=== PATIENT | male | born 1975 | race African-American/Black ===

== ENCOUNTER 2016-05-07 19:30 | Inpatient (IN) | payer OTHER ==
[~2016-05-07] VITALS: Ht 170.2 cm; Wt 102.9 kg
[2016-05-07] MEDS ORDERED: LOSA100T36 PO (19:47)
[2016-05-07] MEDS ORDERED: AMLO10TA2 PO (19:47)
[2016-05-07] MEDS ORDERED: LOPR1TAB7 PO (19:47)
[2016-05-07] MEDS ORDERED: NS 1,000 ML IV SCH (20:24)
[2016-05-07] MEDS ORDERED: ONDANSETRON 4MG/2ML VIAL (J2405) IV ONE (20:30)
[2016-05-07] MEDS ORDERED: MORPHINE 2 MG/ML 1ML SYRINGE IV PRN (20:30)
[2016-05-07] MEDS ORDERED: PANTOPRAZOLE 40MG INJ (PROTONIX) (C9113) IV ONE (20:30)
[2016-05-07 21:08] LABS: BASO # 0.1 K/mm3 (0.0-0.2); BASO % 0.3 % (0.0-1.0); EOS # 0.4 K/mm3 (0.0-0.50); EOS % 2.2 % (0.0-3.0); LARGE UNSTAINED CELL # 0.2 K/mm3 (0.0-0.4); LARGE UNSTAINED CELL % 1.2 % (0.0-4.0); LYMPH # 3.8 K/mm3 (1.5-4.5); LYMPH % 17.8 % (24.0-44.0); MEAN CORPUSCULAR HEMOGLOBIN 31.8 pg (27.0-33.0); MEAN CORPUSCULAR HGB CONC 32.7 g/dl (32.0-36.5); MEAN CORPUSCULAR VOLUME 97.4 fl (80.0-96.0); MONO # 0.9 K/mm3 (0.0-0.8); MONO % 4.4 % (0.0-5.0); NEUTROPHILS # 14.7 K/mm3 (1.8-7.7); PLATELET COUNT, AUTOMATED 222 k/mm3 (150-450); RED CELL DISTRIBUTION WIDTH 12.3 % (11.5-14.5); WHITE BLOOD COUNT 19.8 K/mm3 (4.0-10.0)
[2016-05-07 21:12] LABS: INR 1.16
[2016-05-07 21:41] LABS: ALBUMIN 2.9 GM/DL (3.2-5.2); ALKALINE PHOSPHATASE 61 U/L (45-117); ALT/SGPT 48 U/L (12-78); AMYLASE 84 U/L (25-115); ANION GAP 8 MEQ/L (8-16); AST/SGOT 32 U/L (15-37); BILIRUBIN,DIRECT 0.1 MG/DL (0.0-0.2); BILIRUBIN,TOTAL 0.3 MG/DL (0.2-1.0); BLOOD UREA NITROGEN 47 MG/DL (7-18); CALCIUM LEVEL 7.8 MG/DL (8.5-10.1); CARBON DIOXIDE LEVEL 24 MEQ/L (21-32); CHLORIDE LEVEL 113 MEQ/L (98-107); CREATININE FOR GFR 1.59 MG/DL (0.70-1.30); GLOMERULAR FILTRATION RATE > 60.0 (>60); GLUCOSE, FASTING 145 MG/DL (70-105); POTASSIUM SERUM 4.1 MEQ/L (3.5-5.1); SODIUM LEVEL 145 MEQ/L (136-145); TOTAL PROTEIN 5.8 GM/DL (6.4-8.2)
--- NOTE | 2016-05-07 22:30 | REPUSA ---
CT of the abdomen and pelvis without contrast Clinical statement: G.I. bleeding. Technique: Multiple axial CT images were obtained from the base of the lungs to the floor of the pelv is utilizing 5 mm axial slices without administration of contrast. Coronal and sagittal reconstructio ns were also obtained. No comparison is available. Findings: Chest: The visualized lung bases are clear. Abdomen: The kidneys are normal in size bilaterally. There is no evidence of hydronephrosis or nephro lithiasis. The liver, spleen, pancreas, gallbladder and adrenal glands are unremarkable. The aorta de monstrates normal caliber and contour. There is no abdominal lymphadenopathy or ascites. Pelvis: The bowel is unremarkable, with no obstructive or inflammatory changes. The appendix is andriy l. The urinary bladder is within normal limits. There is no pelvic lymphadenopathy or ascites. The ot her pelvic structures appear unremarkable. Bones: There are no suspicious osseous abnormalities seen. Minimal degenerative changes are seen at t he L4/L5 disc level, with a small disc osteophyte complex. Impression: Unremarkable CT examination of the abdomen and pelvis.
[2016-05-07] MEDS ORDERED: ONDANSETRON 4MG/2ML VIAL (J2405) IV PRN (23:30)
[2016-05-07] MEDS ORDERED: PANTOPRAZOLE 40MG INJ (PROTONIX) (C9113) IV SCH (23:30)
[2016-05-08] VITALS (10 sets, daily range): BP systolic 110–180; BP diastolic 60–112
[2016-05-08 00:11] LABS: BASO % 0.2 % (0.0-1.0); EOS # 0.3 K/mm3 (0.0-0.50); EOS % 1.7 % (0.0-3.0); LARGE UNSTAINED CELL # 0.1 K/mm3 (0.0-0.4); LARGE UNSTAINED CELL % 0.7 % (0.0-4.0); LYMPH # 1.8 K/mm3 (1.5-4.5); LYMPH % 11.1 % (24.0-44.0); MEAN CORPUSCULAR HEMOGLOBIN 31.3 pg (27.0-33.0); MEAN CORPUSCULAR HGB CONC 33.9 g/dl (32.0-36.5); MEAN CORPUSCULAR VOLUME 92.5 fl (80.0-96.0); MONO # 0.4 K/mm3 (0.0-0.8); MONO % 2.2 % (0.0-5.0); NEUTROPHILS # 13.4 K/mm3 (1.8-7.7); PLATELET COUNT, AUTOMATED 217 k/mm3 (150-450); RED CELL DISTRIBUTION WIDTH 12.2 % (11.5-14.5)
--- NOTE | 2016-05-08 00:17 | HPEPDOC ---
Medical History and Physical Date of Admission May 07, 2016 at 23:30 History and Physical PRIMARY CARE PROVIDER: ATTENDING: Amina Sanchez MD CHIEF COMPLAINT: Abdominal cramping and black stools HISTORY OF PRESENT ILLNESS: This is a 41-year-old male past history of hypertension, tobacco abuse, ? Gastritis ?Hepatitis C who presents complaining of crampy abdominal pain. Patient states he had a respiratory tract infection that started 2 weeks ago which is resolving. States that over the past 2 days see started to have loose stools that were maroon and dark in nature, nausea and vomiting. Patient's states that his stools have become darker and more frequent in nature. Patient has been having a poor appetite over the past week as well. States that after he vomited, his abdominal pain has resolved. Denied any chest pain/shortness breath/palpitations. No syncopal episodes. In the ED patient was found to be borderline hypotensive with a heart rate of 135. He states he is normally hypertensive and this blood pressure concerns him. Patient states his normal blood pressure runs in systolic of 170s and he has not taken any of his blood pressure medications over the past 2 days. I have ordered 2 units of PRBC in the ED. We'll monitor patient in ICU. I will also contacted Dr. Pickard who will be in to see the patient for possible upper endoscopy tonight. PAST MEDICAL HISTORY:As per HPI PAST SURGICAL HISTORY: None SOCIAL HISTORY: H/o tobacco abuse, occasional alcohol (once a week), smokes marijuana. Lives with . FAMILY HISTORY: Non contributory ALLERGIES: Please see below. REVIEW OF SYSTEMS: HEENT: Denies sore throat/headache CARDIOVASCULAR: Denies chest pain/palpitations RESPIRATORY: No shortness of breath/cough GASTROINTESTINAL: + nausea/vomiting GENITOURINARY: Denies dysuria/urinary urgency. MUSCULOSKELETAL: Denies myalgias/arthralgias NEUROLOGICAL: Denies any focal weakness Rest of ROS negative. HOME MEDICATIONS: Please see below. PHYSICAL EXAMINATION: Vitals: (see below) General: No acute distress, laying comfortably in bed. HEENT: Dry mucous membranes. Neck: No JVD or lymphadenopathy Cardiac: Tachycardia , No murmurs Pulm: Clear to auscultation b/l. No wheezing, rhonchi Abd: NT/ND + BS Ext: No edema or cyanosis LABORATORY DATA: See below. IMAGING: CT abd/pelvis 05/07/16 Impression: Unremarkable CT examination of the abdomen and pelvis. MICROBIOLOGY: Please see below. ASSESSMENT/PLAN: 1. Upper GI bleed- patient appears to be hemodynamically unstable. We'll monitor patient in ICU. Patient will also be transfused 2 units PRBC, with CBC every 6 hours. Nothing by mouth, IV fluids. Protonix IV twice a day. GI on board, for possible scope tonight. 2. Hypertension- patient is borderline hypotensive at this time. We'll hold all by mouth meds. DVT prophylaxis- SCDs Patient will be followed by Dr. Amina Sanchez restarting 05/08/2016 at 7 AM. Vital Signs Vital Signs Date Time Temp Pulse Resp B/P Pulse Ox O2 Delivery O2 Flow Rate FiO2 05/07/16 19:30 97.1 120 118/60 98 Room Air 05/07/16 21:00 20 Laboratory Data Labs 24H Laboratory Tests 2 05/07/16 20:54: Aspartate Amino Transf (AST/SGOT) 32, Alanine Aminotransferase (ALT/SGPT) 48, Alkaline Phosphatase 61, Total Bilirubin 0.3, Direct Bilirubin 0.1, Albumin 2.9L , Albumin/Globulin Ratio 1.00, Amylase Level 84, Anion Gap 8, White Blood Count 19.8H, Red Blood Count 2.80L, Hemoglobin 8.9L, Hematocrit 27.2L, Mean Corpuscular Volume 97.4H, Mean Corpuscular Hemoglobin 31.8, Mean Corpuscular Hemoglobin Concent 32.7, Red Cell Distribution Width 12.3, Platelet Count 222, Neutrophils (%) (Auto) 74.0H, Lymphocytes (%) (Auto) 17.8L, Monocytes (%) (Auto ) 4.4, Eosinophils (%) (Auto) 2.2, Basophils (%) (Auto) 0.3, Neutrophils # (Auto ) 14.7H, Lymphocytes # (Auto) 3.8, Monocytes # (Auto) 0.9H, Eosinophils # (Auto ) 0.4, Basophils # (Auto) 0.1, Calcium Level 7.8L, Glomerular Filtration Rate > 60.0, Large Unclassified Cells # 0.2, Large Unclassified Cells % 1.2, Lipase 145 , Prothromb Time International Ratio 1.16, Prothrombin Time 14.9H, Total Protein 5.8L CBC/BMP Laboratory Tests 05/07/16 20:54 Red Blood Count 2.80 L, Mean Corpuscular Volume 97.4 H, Mean Corpuscular Hemoglobin 31.8, Mean Corpuscular Hemoglobin Concent 32.7, Red Cell Distribution Width 12.3, Neutrophils (%) (Auto) 74.0 H, Lymphocytes (%) (Auto) 17.8 L, Monocytes (%) (Auto) 4.4, Eosinophils (%) (Auto) 2.2, Basophils (%) ( Auto) 0.3, Neutrophils # (Auto) 14.7 H, Lymphocytes # (Auto) 3.8, Monocytes # ( Auto) 0.9 H, Eosinophils # (Auto) 0.4, Basophils # (Auto) 0.1 Home Medications Scheduled Losartan Potassium (Losartan Potassium) 100 Mg Tab 100 MG PO DAILY Metoprolol Tartrate (Lopressor) 100 Mg Tab 100 MG PO BID Miscellaneous Medications Amlodipine Besylate (Amlodipine Besylate) 10 Mg Tab 10 MG PO Allergies Coded Allergies: No Known Allergies (Unverified , 05/07/16) ROBERTO DOWNEY MD May 08, 2016 00:17
--- NOTE | 2016-05-08 02:22 | ROOR ---
Patient Name: Jl Smiley Procedure Date: 05/08/2016 12:44 AM Date of : 1975 Age: 41 Gender: Male Note Status: Finalized Procedure: Upper GI endoscopy Indications: Acute post hemorrhagic anemia, Coffee-ground emesis, Melena Providers: Vishnu PORTILLO MD Referring MD: 2. Inpatient 2. Inpatient Requesting Provider: Medicines: Monitored Anesthesia Care, General Anesthesia Complications: No immediate complications. Procedure: Pre-Anesthesia Assessment: - The heart rate, respiratory rate, oxygen saturations, blood pressure, adequacy of pulmonary ventilation, and response to care were monitored throughout the procedure. The Endoscope was introduced through the mouth, and advanced to the second part of duodenum. The upper GI endoscopy was accomplished without difficulty. The patient tolerated the procedure well. Findings: A 10 mm non-bleeding Lolis-Osorio tear with stigmata of recent bleeding was found. To repair the defect, the tissue edges were approximated and four hemostatic clips were successfully placed (MR conditional). Closure of the defect was successful. There was no bleeding at the end of the procedure. Moderate inflammation characterized by erythema and linear erosions was found in the gastric antrum. Biopsies were taken with a cold forceps for histology. A small hiatal hernia was present. The examined esophagus was normal. The examined duodenum was normal. Clear fluid was found in the entire examined stomach. Impression: - Lolis-Osorio tear. Clips (MR conditional) were placed. - Gastritis. Biopsied. - Small hiatal hernia. - Normal esophagus. - Normal examined duodenum. - Clear gastric fluid. Recommendation: - Use a proton pump inhibitor IV. - Observe patient's clinical course. - Use Zofran (ondansetron) 4 mg IV QID for 2 days. - Clear liquid diet today. - Return patient to ICU for ongoing care. - Clear gastric fluid suggests that he has stopped bleeding for past few hours. I suspect his tachycardia is likely out of proportion, and may be related to betablocker (Metoprolol) withdrawal. Vishnu Portillo MD Vishnu PORTILLO MD 05/08/2016 2:22:01 AM This report has been signed electronically. Number of Addenda: 0 Note Initiated On: 05/08/2016 12:44 AM Estimated Blood Loss: Estimated blood loss: none.
[2016-05-08] MEDS ORDERED: HYDROmorphone HCL 1 MG/ML SYRINGE (J1170) IV PRN (02:30)
[2016-05-08] MEDS ORDERED: NS 1,000 ML IV SCH ×3 (02:30→03:45)
[2016-05-08] MEDS ORDERED: PERCOCET 5MG/325MG TAB PO PRN (02:30)
[2016-05-08] MEDS ORDERED: ONDANSETRON 4MG/2ML VIAL (J2405) IV PRN (02:30)
[2016-05-08] MEDS ORDERED: fentaNYL 100 MCG/2 ML INJECTION (J3010) IV PRN (02:30)
[2016-05-08] MEDS ORDERED: PHENYLephrine HCL 500 MCG/5 ML (100MCG/ML) SYRINGE (J2370) As Ordered ONE (02:40)
[2016-05-08] MEDS ORDERED: LIDOCAINE 2% INJ 100 MG/5 ML SDV (FOR ANES.) As Ordered ONE (02:40)
[2016-05-08] MEDS ORDERED: fentaNYL 100 MCG/2 ML INJECTION (J3010) As Ordered ONE (02:40)
[2016-05-08] MEDS ORDERED: METOPROLOL 5 MG/5 ML VIAL As Ordered ONE (02:40)
[2016-05-08] MEDS ORDERED: MIDAZOLAM INJ 2 MG/2 ML VIAL (J2250) As Ordered ONE (02:40)
[2016-05-08] MEDS ORDERED: SUCCINYLCHOLINE 100 MG/5 ML SYRINGE (J0330) As Ordered ONE (02:40)
[2016-05-08] MEDS ORDERED: PROPOFOL 200 MG/20 ML VIAL As Ordered ONE (02:40)
[2016-05-08] MEDS ORDERED: ONDANSETRON 4MG/2ML VIAL (J2405) As Ordered ONE (02:40)
[2016-05-08] MEDS ORDERED: dexameTHASONE 4 MG/ML 1ML VIAL (J1100) As Ordered ONE (02:40)
[2016-05-08 05:03] LABS: BASO % 0.2 % (0.0-1.0); EOS # 0.1 K/mm3 (0.0-0.50); EOS % 0.5 % (0.0-3.0); LARGE UNSTAINED CELL # 0.1 K/mm3 (0.0-0.4); LARGE UNSTAINED CELL % 0.5 % (0.0-4.0); LYMPH # 1.5 K/mm3 (1.5-4.5); LYMPH % 10.2 % (24.0-44.0); MEAN CORPUSCULAR HEMOGLOBIN 31.9 pg (27.0-33.0); MEAN CORPUSCULAR HGB CONC 34.3 g/dl (32.0-36.5); MEAN CORPUSCULAR VOLUME 92.8 fl (80.0-96.0); MONO # 0.2 K/mm3 (0.0-0.8); MONO % 1.7 % (0.0-5.0); NEUTROPHILS # 12.4 K/mm3 (1.8-7.7); NEUTROPHILS % 86.9 % (36.0-66.0); PLATELET COUNT, AUTOMATED 170 k/mm3 (150-450); RED CELL DISTRIBUTION WIDTH 12.6 % (11.5-14.5); WHITE BLOOD COUNT 14.2 K/mm3 (4.0-10.0)
[2016-05-08 05:04] LABS: CALCIUM LEVEL 7.4 MG/DL (8.5-10.1); CREATININE FOR GFR 1.73 MG/DL (0.70-1.30); GLOMERULAR FILTRATION RATE 56.4 (>60); MAGNESIUM LEVEL 1.8 MG/DL (1.8-2.4); POTASSIUM SERUM 4.4 MEQ/L (3.5-5.1)
[2016-05-08] MEDS: METOPROLOL TART 12.5 MG PER 1/2 TAB PO SCH ×2 (08:52→20:52)
[2016-05-08] MEDS: ONDANSETRON 4MG/2ML VIAL (J2405) IV SCH ×3 (08:53→20:53)
[2016-05-08] MEDS: PANTOPRAZOLE 40MG INJ (PROTONIX) (C9113) IV SCH ×2 (08:53→20:52)
--- NOTE | 2016-05-08 09:37 | ECGEPIP ---
Stationary ECG Study [facility] - ED Test Date: 2016-05-07 Pat Name: CAILIN QUINTERO Department: Room: [place] [address] Gender: M Data Management Consultant: devonte : 1975 Requested By: ANIVAL BOONE Order Number: [id number] Reading MD: Heather Abreu Measurements Intervals Braxton Rate: 100 P: 21 NV: 118 QRS: 53 QRSD: 90 T: 1 QT: 379 QTc: 489 Interpretive Statements SINUS TACHYCARDIA WITH SHORT NV INTERVAL NONSPECIFIC T-WAVE ABNORMALITY ABNORMAL RHYTHM ECG NO PRIOR FOR COMPARISON Electronically Signed On 05-08-2016 9:37:15 EDT by Heather Abreu
[2016-05-08 11:35] LABS: BASO % 0.3 % (0.0-1.0); EOS # 0.1 K/mm3 (0.0-0.50); EOS % 0.8 % (0.0-3.0); LARGE UNSTAINED CELL % 0.3 % (0.0-4.0); LYMPH # 1.4 K/mm3 (1.5-4.5); LYMPH % 10.8 % (24.0-44.0); MEAN CORPUSCULAR HEMOGLOBIN 32.4 pg (27.0-33.0); MEAN CORPUSCULAR HGB CONC 34.9 g/dl (32.0-36.5); MEAN CORPUSCULAR VOLUME 92.8 fl (80.0-96.0); MONO # 0.4 K/mm3 (0.0-0.8); MONO % 3.4 % (0.0-5.0); NEUTROPHILS % 84.4 % (36.0-66.0); PLATELET COUNT, AUTOMATED 171 k/mm3 (150-450); RED CELL DISTRIBUTION WIDTH 12.9 % (11.5-14.5)
--- NOTE | 2016-05-08 11:55 | IPNPDOC ---
Subjective Date Seen The patient was seen on 05/08/16. Subjective Chief Complaint/HPI The patient is a 41-year-old male admitted with a reason for visit of Upper Gi Bleed. Events since last encounter feeling better this am . no further light headedness or dizziness. no further vomiting or fernanda. no fever or chills, no chest pain or sob , no abdominal pain no nausea. Objective Physical Examination General Exam: Positive: Alert, No Acute Distress Eye Exam: Positive: Conjunctiva & lids normal, EOMI, PERRLA, Negative: Sclera icteric ENT Exam: Positive: Atraumatic, Mucous membr. moist/pink, Pharynx Normal Neck Exam: Positive: Supple, Negative: JVD, thyromegaly Chest Exam: Positive: Clear to auscultation, Normal air movement Heart Exam: Positive: Normal S1, Normal S2, Rate Normal, Regular Rhythm, Negative: Murmurs, Rubs Telemetry: Positive: No significant arrhythmia Abdomen Exam: Positive: Normal bowel sounds, Soft, Negative: Hepatospenomegaly, Tenderness Extremity Exam: Positive: Normal pulses, Negative: Clubbing, Cyanosis, Edema Assessment /Plan Problems (1) GI bleed Status: Acute Problem Text: S/P urgent EGD on 05/08/16 from ag Osorio tear. treated endoscopically continue PPI and antiemetics. (2) Acute blood loss anemia Status: Acute Problem Text: s/p 2 units of prbc will monitor hh. (3) CKD (chronic kidney disease) Status: Chronic (4) Hyperlipidemia Status: Chronic (5) Hypertension Status: Chronic Problem Text: came in with hypotension so BPs meds are on hold now. will restart one by one as BP starts rising. (6) Tachycardia Status: Acute Problem Text: disproportionate to the amount of blood loss . Partly possibly due to beta zac withdrawal will restart betablocker at low dose and increase gradually to home dose at tolerated by BP. (7) Hepatitis C Status: Chronic Plan/VTE VTE Prophylaxis Ordered?: Yes VS, I&O, 24H, Fishbone Vital Signs/I&O Vital Signs Date Time Temp Pulse Resp B/P Pulse Ox O2 Delivery O2 Flow Rate FiO2 05/08/16 08:52 105 121/62 05/08/16 08:00 99.5 28 99 Room Air 05/08/16 02:36 10 I&O- Last 24 Hours up to 6 AM 05/08/16 05:59 Intake Total 2960 ml Output Total 0 ml Balance 2960 ml Laboratory Data 24H LABS Laboratory Tests 2 05/07/16 20:54: Aspartate Amino Transf (AST/SGOT) 32, Alanine Aminotransferase (ALT/SGPT) 48, Alkaline Phosphatase 61, Total Bilirubin 0.3, Direct Bilirubin 0.1, Albumin 2.9L , Albumin/Globulin Ratio 1.00, Amylase Level 84, Anion Gap 8, White Blood Count 19.8H, Red Blood Count 2.80L, Hemoglobin 8.9L, Hematocrit 27.2L, Mean Corpuscular Volume 97.4H, Mean Corpuscular Hemoglobin 31.8, Mean Corpuscular Hemoglobin Concent 32.7, Red Cell Distribution Width 12.3, Platelet Count 222, Neutrophils (%) (Auto) 74.0H, Lymphocytes (%) (Auto) 17.8L, Monocytes (%) (Auto ) 4.4, Eosinophils (%) (Auto) 2.2, Basophils (%) (Auto) 0.3, Neutrophils # (Auto ) 14.7H, Lymphocytes # (Auto) 3.8, Monocytes # (Auto) 0.9H, Eosinophils # (Auto ) 0.4, Basophils # (Auto) 0.1, Calcium Level 7.8L, Glomerular Filtration Rate > 60.0, Large Unclassified Cells # 0.2, Large Unclassified Cells % 1.2, Lipase 145 , Prothromb Time International Ratio 1.16, Prothrombin Time 14.9H, Total Protein 5.8L 05/07/16 23:45: White Blood Count 16.0H, Red Blood Count 2.71L, Hemoglobin 8.5L, Hematocrit 25.1L, Mean Corpuscular Volume 92.5, Mean Corpuscular Hemoglobin 31.3, Mean Corpuscular Hemoglobin Concent 33.9, Red Cell Distribution Width 12.2, Platelet Count 217, Neutrophils (%) (Auto) 84.0H, Lymphocytes (%) (Auto) 11.1L, Monocytes (%) (Auto) 2.2, Eosinophils (%) (Auto) 1.7, Basophils (%) (Auto) 0.2, Neutrophils # (Auto) 13.4H, Lymphocytes # (Auto) 1.8, Monocytes # (Auto) 0.4, Eosinophils # (Auto) 0.3, Basophils # (Auto) 0.0, Large Unclassified Cells # 0.1 , Large Unclassified Cells % 0.7 05/08/16 04:33: Anion Gap 10, White Blood Count 14.2H, Red Blood Count 3.32L, Hemoglobin 10.6#L , Hematocrit 30.8L, Mean Corpuscular Volume 92.8, Mean Corpuscular Hemoglobin 31.9, Mean Corpuscular Hemoglobin Concent 34.3, Red Cell Distribution Width 12.6 , Platelet Count 170, Neutrophils (%) (Auto) 86.9H, Lymphocytes (%) (Auto) 10.2L , Monocytes (%) (Auto) 1.7, Eosinophils (%) (Auto) 0.5, Basophils (%) (Auto) 0.2 , Neutrophils # (Auto) 12.4H, Lymphocytes # (Auto) 1.5, Monocytes # (Auto) 0.2, Eosinophils # (Auto) 0.1, Basophils # (Auto) 0.0, Calcium Level 7.4L, Glomerular Filtration Rate 56.4L, Large Unclassified Cells # 0.1, Large Unclassified Cells % 0.5, Blood Urea Nitrogen 37H, Creatinine 1.73H, Sodium Level 147H, Potassium Level 4.4, Chloride Level 115H, Carbon Dioxide Level 22, Magnesium Level 1.8 05/08/16 10:47: White Blood Count 13.0H, Red Blood Count 3.00L, Hemoglobin 9.7L, Hematocrit 27.8L, Mean Corpuscular Volume 92.8, Mean Corpuscular Hemoglobin 32.4, Mean Corpuscular Hemoglobin Concent 34.9, Red Cell Distribution Width 12.9, Platelet Count 171, Neutrophils (%) (Auto) 84.4H, Lymphocytes (%) (Auto) 10.8L, Monocytes (%) (Auto) 3.4, Eosinophils (%) (Auto) 0.8, Basophils (%) (Auto) 0.3, Neutrophils # (Auto) 11.0H, Lymphocytes # (Auto) 1.4L, Monocytes # (Auto) 0.4, Eosinophils # (Auto) 0.1, Basophils # (Auto) 0.0, Large Unclassified Cells # 0.0 , Large Unclassified Cells % 0.3 CBC/BMP Laboratory Tests 05/07/16 20:54 Red Blood Count 2.80 L, Mean Corpuscular Volume 97.4 H, Mean Corpuscular Hemoglobin 31.8, Mean Corpuscular Hemoglobin Concent 32.7, Red Cell Distribution Width 12.3, Neutrophils (%) (Auto) 74.0 H, Lymphocytes (%) (Auto) 17.8 L, Monocytes (%) (Auto) 4.4, Eosinophils (%) (Auto) 2.2, Basophils (%) ( Auto) 0.3, Neutrophils # (Auto) 14.7 H, Lymphocytes # (Auto) 3.8, Monocytes # ( Auto) 0.9 H, Eosinophils # (Auto) 0.4, Basophils # (Auto) 0.1 05/07/16 23:45 Red Blood Count 2.71 L, Mean Corpuscular Volume 92.5, Mean Corpuscular Hemoglobin 31.3, Mean Corpuscular Hemoglobin Concent 33.9, Red Cell Distribution Width 12.2, Neutrophils (%) (Auto) 84.0 H, Lymphocytes (%) (Auto) 11.1 L, Monocytes (%) (Auto) 2.2, Eosinophils (%) (Auto) 1.7, Basophils (%) ( Auto) 0.2, Neutrophils # (Auto) 13.4 H, Lymphocytes # (Auto) 1.8, Monocytes # ( Auto) 0.4, Eosinophils # (Auto) 0.3, Basophils # (Auto) 0.0 05/08/16 04:33 Red Blood Count 3.32 L, Mean Corpuscular Volume 92.8, Mean Corpuscular Hemoglobin 31.9, Mean Corpuscular Hemoglobin Concent 34.3, Red Cell Distribution Width 12.6, Neutrophils (%) (Auto) 86.9 H, Lymphocytes (%) (Auto) 10.2 L, Monocytes (%) (Auto) 1.7, Eosinophils (%) (Auto) 0.5, Basophils (%) ( Auto) 0.2, Neutrophils # (Auto) 12.4 H, Lymphocytes # (Auto) 1.5, Monocytes # ( Auto) 0.2, Eosinophils # (Auto) 0.1, Basophils # (Auto) 0.0, Calcium Level 7.4 L 05/08/16 10:47 Red Blood Count 3.00 L, Mean Corpuscular Volume 92.8, Mean Corpuscular Hemoglobin 32.4, Mean Corpuscular Hemoglobin Concent 34.9, Red Cell Distribution Width 12.9, Neutrophils (%) (Auto) 84.4 H, Lymphocytes (%) (Auto) 10.8 L, Monocytes (%) (Auto) 3.4, Eosinophils (%) (Auto) 0.8, Basophils (%) ( Auto) 0.3, Neutrophils # (Auto) 11.0 H, Lymphocytes # (Auto) 1.4 L, Monocytes # (Auto) 0.4, Eosinophils # (Auto) 0.1, Basophils # (Auto) 0.0 Microbiology Microbiology 05/08/16 Respiratory Virus Panel (PCR) (PATRICIA) - Final, Complete ALYSON HOROWITZ MD May 08, 2016 11:55
[2016-05-08] MEDS: CEPACOL LOZENGE PO PRN ×2 (15:16→18:38)
[2016-05-09] MEDS: ONDANSETRON 4MG/2ML VIAL (J2405) IV SCH ×4 (04:03→21:29)
[2016-05-09] MEDS: CEPACOL LOZENGE PO PRN (04:06)
[2016-05-09 04:50] LABS: ANION GAP 8 MEQ/L (8-16); BLOOD UREA NITROGEN 16 MG/DL (7-18); CALCIUM LEVEL 7.7 MG/DL (8.5-10.1); CARBON DIOXIDE LEVEL 24 MEQ/L (21-32); CHLORIDE LEVEL 115 MEQ/L (98-107); GLOMERULAR FILTRATION RATE > 60.0 (>60); GLUCOSE, FASTING 99 MG/DL (70-105); MAGNESIUM LEVEL 1.9 MG/DL (1.8-2.4); POTASSIUM SERUM 3.6 MEQ/L (3.5-5.1); SODIUM LEVEL 147 MEQ/L (136-145)
[2016-05-09 04:56] VITALS: BP 128/90
[2016-05-09 07:00] LABS: MEAN CORPUSCULAR HEMOGLOBIN 31.8 pg (27.0-33.0); MEAN CORPUSCULAR HGB CONC 34.1 g/dl (32.0-36.5); MEAN CORPUSCULAR VOLUME 93.1 fl (80.0-96.0); RED CELL DISTRIBUTION WIDTH 13.4 % (11.5-14.5); WHITE BLOOD COUNT 12.9 K/mm3 (4.0-10.0)
[2016-05-09 07:52] VITALS: BP 122/68
[2016-05-09] MEDS: METOPROLOL TART 12.5 MG PER 1/2 TAB PO SCH ×2 (08:36→21:30)
[2016-05-09] MEDS: PANTOPRAZOLE 40MG INJ (PROTONIX) (C9113) IV SCH ×2 (08:36→21:29)
[2016-05-09 11:42] VITALS: BP 146/84
[2016-05-09] MEDS ORDERED: SLF 3 ML SYR IV PRN (12:45)
--- NOTE | 2016-05-09 13:52 | IPNPDOC ---
Subjective Date Seen The patient was seen on 05/09/16. Subjective Chief Complaint/HPI The patient is a 41-year-old male admitted with a reason for visit of Upper Gi Bleed. Events since last encounter pt seen and examined, had one bowel movement today described as black loose, he denies any dizziness, chest pain. Objective Physical Examination General Exam: Positive: Alert, No Acute Distress Eye Exam: Positive: Conjunctiva & lids normal, EOMI, PERRLA, Negative: Sclera icteric ENT Exam: Positive: Atraumatic, Mucous membr. moist/pink, Pharynx Normal Neck Exam: Positive: Supple, Negative: JVD, thyromegaly Chest Exam: Positive: Clear to auscultation, Normal air movement Heart Exam: Positive: Normal S1, Normal S2, Rate Normal, Regular Rhythm, Negative: Murmurs, Rubs Telemetry: Positive: No significant arrhythmia Abdomen Exam: Positive: Normal bowel sounds, Soft, Negative: Hepatospenomegaly, Tenderness Extremity Exam: Positive: Normal pulses, Negative: Clubbing, Cyanosis, Edema Assessment /Plan Problems (1) GI bleed Status: Acute Problem Text: * S/P urgent EGD on 05/08/16 * from ag Osorio tear. treated endoscopically * continue PPI and antiemetics. * Hg continues to drop, he had a bowel movement today that is black in color and loose * will transfuse if hg drops bellow 8 (2) Acute blood loss anemia Status: Acute Problem Text: s/p 2 units of prbc will monitor hh. (3) CKD (chronic kidney disease) Status: Chronic (4) Hyperlipidemia Status: Chronic (5) Hypertension Status: Chronic Problem Text: came in with hypotension so BPs meds are on hold now. will restart one by one as BP starts rising. (6) Tachycardia Status: Acute Problem Text: disproportionate to the amount of blood loss . Partly possibly due to beta zac withdrawal will restart betablocker at low dose and increase gradually to home dose at tolerated by BP. (7) Hepatitis C Status: Chronic Plan/VTE VTE Prophylaxis Ordered?: Yes VS, I&O, 24H, Fishbone Vital Signs/I&O Vital Signs Date Time Temp Pulse Resp B/P Pulse Ox O2 Delivery O2 Flow Rate FiO2 05/09/16 11:42 98.6 72 18 146/84 100 Room Air 05/08/16 02:36 10 I&O- Last 24 Hours up to 6 AM 05/09/16 06:00 Intake Total 2775 ml Output Total 1700 ml Balance 1075 ml Laboratory Data 24H LABS Laboratory Tests 2 05/09/16 04:18: Anion Gap 8, Blood Urea Nitrogen 16#, Creatinine 1.50H, Sodium Level 147H, Potassium Level 3.6, Chloride Level 115H, Carbon Dioxide Level 24, Calcium Level 7.7L, Glomerular Filtration Rate > 60.0, Magnesium Level 1.9 CBC/BMP Laboratory Tests 05/08/16 17:48 05/09/16 01:48 05/09/16 04:18 Calcium Level 7.7 L, Red Blood Count 2.83 L, Mean Corpuscular Volume 93.1, Mean Corpuscular Hemoglobin 31.8, Mean Corpuscular Hemoglobin Concent 34.1, Red Cell Distribution Width 13.4 05/09/16 10:12 Microbiology Microbiology 05/08/16 Respiratory Virus Panel (PCR) (PATRICIA) - Final, Complete TEE HUNG DO May 09, 2016 13:52
[2016-05-09] MEDS: SLF 3 ML SYR IV SCH ×2 (15:35→21:30)
[2016-05-09 16:00] VITALS: BP 154/94
[2016-05-09 21:04] VITALS: BP 138/68
[2016-05-09 23:59] VITALS: BP 128/88
[2016-05-10] MEDS: ONDANSETRON 4MG/2ML VIAL (J2405) IV SCH (03:49)
[2016-05-10 04:00] VITALS: BP 142/95
[2016-05-10 05:58] LABS: ANION GAP 4 MEQ/L (8-16); BLOOD UREA NITROGEN 12 MG/DL (7-18); CALCIUM LEVEL 8.2 MG/DL (8.5-10.1); CARBON DIOXIDE LEVEL 28 MEQ/L (21-32); CHLORIDE LEVEL 112 MEQ/L (98-107); CREATININE FOR GFR 1.53 MG/DL (0.70-1.30); GLOMERULAR FILTRATION RATE > 60.0 (>60); GLUCOSE, FASTING 86 MG/DL (70-105); POTASSIUM SERUM 3.5 MEQ/L (3.5-5.1); SODIUM LEVEL 144 MEQ/L (136-145)
[2016-05-10] MEDS: SLF 3 ML SYR IV SCH (06:49)
[2016-05-10 08:00] VITALS: BP_SYST 142; BP_SYST 150; BP_DIAS 100; BP_DIAS 95
[2016-05-10] MEDS ORDERED: PANTOPRAZOLE 40MG TAB (PROTONIX) PO SCH (09:00)
[2016-05-10] MEDS ORDERED: MIRALAX *UNIT DOSE* 17GM PACKET PO PRN (09:30)
[2016-05-10 10:07] VITALS: BP 125/80
[2016-05-10] MEDS: METOPROLOL TART 12.5 MG PER 1/2 TAB PO SCH (10:07)
[2016-05-10 10:42] LABS: MEAN CORPUSCULAR HEMOGLOBIN 31.2 pg (27.0-33.0); MEAN CORPUSCULAR HGB CONC 33.9 g/dl (32.0-36.5); WHITE BLOOD COUNT 8.5 K/mm3 (4.0-10.0)
[2016-05-10] MEDS ORDERED: METO12TA PO (11:17)
[2016-05-10] MEDS ORDERED: PANT40TA2 PO (11:17)
--- NOTE | 2016-05-10 13:36 | DSES ---
DATE OF ADMISSION: 05/07/2016 DATE OF DISCHARGE: PRIMARY CARE PROVIDER: Patient sees a provider at [facility]. REASON FOR ADMISSION: Abdominal cramping and black stool. FINAL DIAGNOSES 1. Lolis-Osorio tear. 2. Acute blood loss anemia. 3. Chronic kidney disease. 4. Hypertension. 5. History of hepatitis C. 6. Tachycardia which resolved. CONSULTATION DURING ADMISSION: Dr. Morales REASON FOR CONSULTATION: GI bleed secondary to Lolis-Osorio tear. PROCEDURES: The patient underwent an esophagogastroduodenoscopy (EGD) with clips placed at Lolis-Osorio tear on 05/08/2016. HISTORY OF PRESENT ILLNESS: The patient is a 41-year-old male with past medical history for hypertension, hyperlipidemia, hepatitis C presented to the emergency room complaining of abdominal cramping and black tarry stool. He stated that over the past few days he started to notice loose stools that were maroon and black in nature associated with nausea and vomiting. They became darker and he was starting to have a poor appetite. He denied any chest pain, shortness of breath or palpitation. Denied any syncopal episodes. In the emergency room he had heart rate of 135, systolic blood pressure in the 170s. He was admitted to the ICU. He was given 2 units of packed RBCs. Dr. Morales was consulted. He saw the patient later that day and him back for an EGD. HOSPITAL COURSE: The patient tolerated EGD well. Clips were placed. The patient's hemoglobin were monitored closely after the transfusion and went up to 10.6 dropped slightly to 9.7 and then remained from 9 to 9.5 the following 2 days. The patient had no more episodes of diarrhea or vomiting. He denied any dizziness. His blood pressure was found to be borderline low initially and his blood pressure medications were discontinued. Blood pressure medications including Norvasc 10 mg daily, losartan 100 mg by mouth daily and metoprolol 100 mg by mouth twice a day was decreased at 12.5 mg by mouth twice a day. Once the patient was stable, tolerating diet, he was discharged home. DISCHARGE INSTRUCTIONS: He is to follow up with primary care provider in 1 week. He was given a script for a repeat hemoglobin/hematocrit on Thursday May 12, 2016 with results to go to primary care provider. He was told if symptoms were to recur including black tarry stools, any lightheadedness, dizziness or fatigue, the patient is to return back to the emergency room. Diet regular. Activities as tolerated. Discharge medications include Protonix 40 mg by mouth twice a day, metoprolol 12.5 mg by mouth twice a day, his amlodipine and losartan as well as his higher dose of metoprolol were all discontinued. Discharge condition was stable.
== END 2016-05-10 13:15 | disposition home or self-care (01) | DRG 242 ==
LOC: M ED 20:24 → M ED INP 23:30 → M ICU 05-08 02:59 → M PCU 05-08 17:00
PROVIDERS: ADMIT Internal Medicine; ATTEND Internal Medicine
PROC: 0W3P8ZZ Control Bleeding in Gastrointestinal Tract, Via Natural or Artificial Opening Endoscopic (ICD-10-PCS; 2016-05-08)
PROC: 0DB68ZX Excision of Stomach, Via Natural or Artificial Opening Endoscopic, Diagnostic (ICD-10-PCS; 2016-05-08)
PROC: 30233N1 Transfusion of Nonautologous Red Blood Cells into Peripheral Vein, Percutaneous Approach (ICD-10-PCS; principal; 2016-05-08 00:30)
DX: K22.6 Gastro-esophageal laceration-hemorrhage syndrome (principal); D62 Acute posthemorrhagic anemia; I12.9 Hypertensive chronic kidney disease with stage 1 through stage 4 chronic kidney disease, or unspecified chronic kidney disease; N18.9 Chronic kidney disease, unspecified; B18.2 Chronic viral hepatitis C; R00.1 Bradycardia, unspecified; E78.5 Hyperlipidemia, unspecified; Z79.899 Other long term (current) drug therapy; F17.200 Nicotine dependence, unspecified, uncomplicated

== ENCOUNTER → 2016-05-12 | Outpatient (CLI) | payer OTHER ==
[~2016-05-12] MED LIST: AMLO10TA2 PO; LOPR1TAB7 PO; LOSA100T36 PO; METO12TA PO; PANT40TA2 PO
== END ==
LOC: M WUC 17:06
PROVIDERS: ATTEND Internal Medicine
DX: D62 Acute posthemorrhagic anemia (principal); K22.6 Gastro-esophageal laceration-hemorrhage syndrome

== ENCOUNTER → 2016-05-13 | Outpatient (REF) | payer OTHER | LOC: M LAB REF 10:23 | PROVIDERS: ATTEND Physician Assistant | DX: J02.9 Acute pharyngitis, unspecified (principal) ==

== ENCOUNTER 2017-01-12 12:47 | Emergency (ER) | payer OTHER ==
[~2017-01-12] VITALS: Ht 171.4 cm; Wt 104.5 kg
[~2017-01-12 12:47] MED LIST changes: -METO12TA PO; +METO1TAB87 PO
[2017-01-12] MEDS ORDERED: AUGM875T28 PO (13:08)
[2017-01-12 16:26] LABS: BASO % 0.4 % (0.0-1.0); EOS # 0.4 10^3/uL (0.0-0.50); EOS % 4.9 % (0.0-3.0); IMMATURE GRANULOCYTE % 0.7 % (0-0); LYMPH # 2.4 10^3/uL (1.5-4.5); LYMPH % 28.1 % (24.0-44.0); MEAN CORPUSCULAR HEMOGLOBIN 31.7 pg (27.0-33.0); MEAN CORPUSCULAR HGB CONC 33.5 g/dl (32.0-36.5); MEAN CORPUSCULAR VOLUME 94.6 fl (80.0-96.0); MONO # 0.6 10^3/uL (0.0-0.8); NEUTROPHILS % 58.9 % (36.0-66.0); PLATELET COUNT, AUTOMATED 243 10^3/uL (150-450); WHITE BLOOD COUNT 8.4 10^3/uL (4.0-10.0)
[2017-01-12 16:44] LABS: INR 0.92
[2017-01-12 16:59] LABS: ALBUMIN 3.2 GM/DL (3.2-5.2); ALBUMIN/GLOBULIN RATIO 0.78 (1.00-1.93); ALKALINE PHOSPHATASE 72 U/L (45-117); ALT/SGPT 49 U/L (12-78); ANION GAP 5 MEQ/L (8-16); AST/SGOT 52 U/L (7-37); BILIRUBIN,DIRECT < 0.1 MG/DL (0.0-0.2); BILIRUBIN,TOTAL 0.3 MG/DL (0.2-1.0); BLOOD UREA NITROGEN 15 MG/DL (7-18); CALCIUM LEVEL 8.6 MG/DL (8.5-10.1); CARBON DIOXIDE LEVEL 30 MEQ/L (21-32); CHLORIDE LEVEL 107 MEQ/L (98-107); CREATININE FOR GFR 1.76 MG/DL (0.70-1.30); GLOMERULAR FILTRATION RATE 55.3 (>60); GLUCOSE, FASTING 86 MG/DL (70-105); POTASSIUM SERUM 4.2 MEQ/L (3.5-5.1); SODIUM LEVEL 142 MEQ/L (136-145); TOTAL PROTEIN 7.3 GM/DL (6.4-8.2)
[2017-01-12 18:20] VITALS: BP 197/120
--- NOTE | 2017-01-12 18:30 | REP ---
CT ABDOMEN AND PELVIS WITHOUT CONTRAST: HISTORY: Rectal bleeding. COMPARISON: 05/07/2016 The liver, gallbladder, pancreas, spleen, adrenal glands and kidneys are normal in appearance. There is no mass, adenopathy, or free fluid. The visualized lungs are clear. The urinary bladder and uterus are normal in appearance. Minimal degenerative change is present in the spine. IMPRESSION: Normal CT abdomen and pelvis. Signed by Raman Yates MD 01/12/2017 06:55 P
== END 2017-01-12 18:22 | disposition home or self-care (01) ==
LOC: M ED 12:47
DX: K92.1 Melena (principal); I10 Essential (primary) hypertension; Z86.19 Personal history of other infectious and parasitic diseases; F12.10 Cannabis abuse, uncomplicated; Z79.899 Other long term (current) drug therapy; Z91.013 Allergy to seafood

== ENCOUNTER → 2018-03-12 | Outpatient (CLI) | payer OTHER ==
[~2018-03-12] MED LIST changes: -AMLO10TA2 PO; +AMLO10TA5 PO; +AUGM875T28 PO; -LOSA100T36 PO; +LOSA100T50 PO; -PANT40TA2 PO; +PANT40TA3 PO
--- NOTE | 2018-03-12 12:20 | REP ---
RENAL AND BLADDER ULTRASOUND: Real-time sonographic evaluation of the kidneys performed. The kidneys are normal in size and echotexture, right kidney measuring 9.2 x 5.8 x 6.0 cm and left kidney 10.0 x 6.0 x 5.6 cm. There is no hydronephrosis bilaterally. No definite renal stones are seen and there is no evidence of a renal mass. The study is somewhat limited due to overlying bowel gas. Urinary bladder is not well distended and not well evaluated. IMPRESSION: Essentially unremarkable renal ultrasound. Urinary bladder not well distended and not well evaluated. Electronically Signed by Vivek Arthur MD 03/12/2018 12:49 P
== END ==
LOC: M RAD 11:23
PROVIDERS: ATTEND Internal Medicine Nephrology
DX: N18.3 Chronic kidney disease, stage 3 (moderate) (principal)

== ENCOUNTER → 2018-03-12 | Outpatient (CLI) | payer OTHER ==
[2018-03-12 12:29] LABS: HEMATOCRIT 38.3 % (42.0-52.0); HEMOGLOBIN 13.6 g/dl (13.5-17.5); MEAN CORPUSCULAR HEMOGLOBIN 31.6 pg (27.0-33.0); MEAN CORPUSCULAR HGB CONC 35.5 g/dl (32.0-36.5); MEAN CORPUSCULAR VOLUME 88.9 fl (80.0-96.0); PLATELET COUNT, AUTOMATED 251 10^3/uL (150-450); RED BLOOD COUNT 4.31 10^6/uL (4.30-6.10); WHITE BLOOD COUNT 9.4 10^3/uL (4.0-10.0)
[2018-03-12 12:46] LABS: ALBUMIN 3.7 GM/DL (3.2-5.2); ALT/SGPT 60 U/L (12-78); BILIRUBIN,TOTAL 0.6 MG/DL (0.2-1.0); BLOOD UREA NITROGEN 12 MG/DL (7-18); CARBON DIOXIDE LEVEL 31 MEQ/L (21-32); CHLORIDE LEVEL 106 MEQ/L (98-107); CREATININE FOR GFR 1.79 MG/DL (0.70-1.30); GLUCOSE, FASTING 90 MG/DL (70-100); POTASSIUM SERUM 3.8 MEQ/L (3.5-5.1); SODIUM LEVEL 141 MEQ/L (136-145); TOTAL PROTEIN 7.7 GM/DL (6.4-8.2)
[2018-03-13 10:57] LABS: HEPATITIS B SURFACE ANTIBODY POSITIVE (POSITIVE)
[2018-03-13 11:08] LABS: HEPATITIS B SURFACE ANTIGEN NEGATIVE (NEGATIVE)
[2018-03-13 11:36] LABS: HIV 1&2 SCREEN CENTAUR NEGATIVE (NEGATIVE)
== END ==
LOC: M LAB 12:42
PROVIDERS: ATTEND Internal Medicine Infectious Disease
DX: B18.2 Chronic viral hepatitis C (principal)